=== PATIENT | female | born 1960 | race Native Hawaiian/Other Pacific Islander ===

== ENCOUNTER 2017-05-03 07:31 | Emergency (ER) | payer BC, OTHER ==
[~2017-05-03] VITALS: Ht 149.9 cm; Wt 65.8 kg
[2017-05-03] MEDS ORDERED: LOSA1TAB39 PO (07:44)
[2017-05-03] MEDS ORDERED: METF10002 PO (07:44)
[2017-05-03] MEDS ORDERED: ASPI81TA31 PO (07:44)
[2017-05-03] MEDS ORDERED: TDAP DIPH,PERTUSS,TET VAC/PF 0.5 ML DISP.SYRIN IM ONE ×2 (07:50→08:00)
--- NOTE | 2017-05-03 08:06 | NUR ---
Patient discharged to home in stable conditon. Written and verbal after care instructions given to patient.Patient verbalizes understanding of instructions.
== END 2017-05-03 08:08 | disposition home or self-care (01) ==
LOC: ER 07:31
DX: S61.432A Puncture wound without foreign body of left hand, initial encounter (principal); I10 Essential (primary) hypertension; E11.9 Type 2 diabetes mellitus without complications; Z79.82 Long term (current) use of aspirin; X58.XXXA Exposure to other specified factors, initial encounter; Y93.89 Activity, other specified; Y99.8 Other external cause status; Y92.89 Other specified places as the place of occurrence of the external cause
CPT/HCPCS: 90715; A4663

== ENCOUNTER 2020-12-11 07:10 | Outpatient (CLI) | payer BC, OTHER ==
[~2020-12-11 07:10] MED LIST: ASPI81TA31 PO; LOSA1TAB39 PO; METF-442 PO
[2020-12-11 08:02] LABS: BASOPHILS # (AUTO) 0.1 K/uL (0.0-8.0); BASOPHILS % (AUTO) 0.8 % (0.0-2.0); EOSINOPHILS # (AUTO) 0.1 K/uL (0.0-0.7); EOSINOPHILS % (AUTO) 1.9 % (0.0-7.0); HEMATOCRIT 37.9 % (31.2-41.9); HEMOGLOBIN 12.5 g/dL (10.9-14.3); LYMPHOCYTES # (AUTO) 1.4 K/uL (20.0-40.0); LYMPHOCYTES % (AUTO) 22.5 % (20.5-51.5); MEAN CORPUSCULAR HEMOGLOBIN 28.6 uug (24.7-32.8); MEAN CORPUSCULAR HGB CONC 33 g/dL (32.3-35.6); MEAN CORPUSCULAR VOLUME 86.7 fL (75.5-95.3); MONOCYTES # (AUTO) 0.4 K/uL (2.0-10.0); MONOCYTES % (AUTO) 5.6 % (0.0-11.0); NEUTROPHILS # (AUTO) 4.4 K/uL (1.8-8.9); NEUTROPHILS % (AUTO) 69.2 % (38.5-71.5); PLATELET COUNT (AUTO) 285 K/uL (179-408); RED BLOOD CELL COUNT(AUTO) 4.37 MIL/uL (3.63-4.92); WHITE BLOOD COUNT (AUTO) 6.3 K/uL (3.8-11.8)
[2020-12-11 08:08] LABS: BILIRUBIN,TOTAL 0.5 mg/dL (0.2-1.0); CREATININE 0.8 mg/dL (0.6-1.3); POTASSIUM 3.7 mmol/L (3.5-5.1)
[2020-12-11 08:16] LABS: *BILIRUBIN,URIN NEGATIVE (NEGATIVE); *CLARITY,URINE CLEAR (CLEAR); *COLOR,URINE YELLOW (YELLOW); *KETONES,URINE TRACE (NEGATIVE); *UROBILINOGEN,URINE 0.2 E.U./dl (NORMAL); LEUKOCYTE ESTERASE ,URINE TRACE (NEGATIVE); NITRITE, URINE POSITIVE (NEGATIVE); PH,URINE 5.5 (5.0-8.0); UGLUCOSE NEGATIVE (NEGATIVE)
[2020-12-11 08:17] LABS: THYROID STIMULATING HORMONE 2.625 mIU/mL (0.358-3.740)
[2020-12-11 08:44] LABS: *BLOOD, URINE TRACE (NEGATIVE)
[2020-12-11 15:14] LABS: BACTERIA,URINE MANY /HPF (NONE SEEN); SQUAMOUS EPITHELIAL CELL,UR FEW /HPF (NONE SEEN); URINE AMORPHOUS URATE MANY /HPF
== END 2020-12-11 23:59 | disposition home or self-care (01) ==
LOC: LAB 07:10
PROVIDERS: ATTEND Family Medicine
DX: I10 Essential (primary) hypertension (principal); E11.9 Type 2 diabetes mellitus without complications; E55.9 Vitamin D deficiency, unspecified; E78.5 Hyperlipidemia, unspecified; E53.9 Vitamin B deficiency, unspecified
CPT/HCPCS: 82306; 84443; 85025; 87086

== ENCOUNTER 2022-04-21 01:37 | Emergency (ER) | payer BC, OTHER ==
[~2022-04-21] VITALS: Ht 152.4 cm; Wt 72.6 kg
[2022-04-21] MEDS ORDERED: CHOLECALCIFEROL 1,000 UNIT TABLET PO SCH (02:30)
[2022-04-21] MEDS ORDERED: CLONIDINE HCL 0.1 MG TABLET PO ONE (02:30)
[2022-04-21] MEDS ORDERED: CLONIDINE HCL 0.1 MG TABLET ONE (02:39)
[2022-04-21] MEDS ORDERED: CHOLECALCIFEROL 1,000 UNIT TABLET ONE (02:39)
[2022-04-21 03:09] LABS: MEAN CORPUSCULAR HEMOGLOBIN 28.9 uug (24.7-32.8); PLATELET COUNT (AUTO) 267 K/uL (179-408)
[2022-04-21 03:13] LABS: CREATININE 0.8 mg/dL (0.6-1.3); POTASSIUM 3.4 mmol/L (3.5-5.1)
[2022-04-21] MEDS ORDERED: CLON0.1T PO (03:35)
[2022-04-21] MEDS ORDERED: OXYC-128 PO (03:35)
--- NOTE | 2022-04-21 03:35 | NUR ---
Patient laying on gurny with no distress noted. Denies SOB, CP at this time.
[2022-04-21] MEDS ORDERED: ALBU18HF2 INH (03:37)
--- NOTE | 2022-04-21 03:47 | NUR ---
Patient discharged to home in stable condition. Written and verbal after care instructions given. Patient verbalizes understanding of instructions. Stressed follow up or return to ER for worsening s/s.
[2022-04-21 03:48] VITALS: BP 145/88
== END 2022-04-21 03:49 | disposition home or self-care (01) ==
LOC: ER 02:30
DX: U07.1 COVID-19 (principal); M79.10 Myalgia, unspecified site; I10 Essential (primary) hypertension; E11.9 Type 2 diabetes mellitus without complications; R91.8 Other nonspecific abnormal finding of lung field; Z79.899 Other long term (current) drug therapy
CPT/HCPCS: 36415; 71045; 83735; 85025; A4663